=== PATIENT | female | born 1935 | race Caucasian/White ===

== ENCOUNTER → 2017-02-17 | Outpatient (CLI) | payer MEDICARE ==
--- NOTE | 2017-02-17 13:05 | PCVCIMAG ---
EXAM: BILATERAL LOWER EXTREMITY ARTERIAL DUPLEX INDICATION: Peripheral Arterial Disease. Leg pain. Right foot ulcer. FINDINGS: Right Leg: Satisfactory arterial waveforms in the common femoral and profunda femoral artery and throughout the superficial femoral artery and popliteal arteries without evidence of stenosis. The peroneal artery and posterior tibial arteries are patent. High-grade stenosis or occlusion in the mid/distal anterior tibial artery. Left Leg: Satisfactory arterial waveforms in the common femoral and profunda femoral artery and throughout the superficial femoral artery and popliteal arteries without evidence of stenosis. The peroneal artery and posterior tibial arteries are patent. High-grade stenosis or occlusion in the mid/distal anterior tibial artery. IMPRESSION: High-grade stenosis or occlusion of the mid/distal anterior tibial arteries bilaterally. Otherwise no flow-limiting stenosis seen in either lower extremity. LOC:[id number]
== END | disposition home or self-care (01) ==
LOC: PCVCIMAG 11:10
PROVIDERS: ATTEND Nuclear Medicine Nuclear Cardiology
DX: I73.9 Peripheral vascular disease, unspecified (principal); I77.1 Stricture of artery; L97.519 Non-pressure chronic ulcer of other part of right foot with unspecified severity
CPT/HCPCS: 93925

== ENCOUNTER → 2017-03-05 | Outpatient (CLI) | payer MEDICARE ==
[~2017-03-05] MED LIST: DIAZEPAM 10 MG TABLET. ONE; HEPARIN SODIUM 5,000 UNIT/ML VIAL for PCVC. ONE; IODIXANOL 270 MG/ML 100 ML VIAL. ONE; IV NORMAL SALINE 500ML BAG 0 ML ONE; IV NORMAL SALINE 500ML BAG 500 ML ONE; LIDOCAINE 1% Multi-Dose 20 ML VIAL. ONE; LIDOCAINE 1%/EPI 1:100,000 20 ML VIAL. ONE; MIDAZOLAM HCL/PF 2 MG/2 ML VIAL. ONE; fentaNYL PF VIAL 100 MCG/2 ML VIAL ONE; hydrALAZINE 20 MG/ML VIAL. ONE
--- NOTE | 2017-03-05 09:53 | PCVCINTER ---
EXAM: 1. AORTOGRAM AND BILATERAL LOWER EXTREMITY RUNOFF ANGIOGRAM 2. BILATERAL RENAL ANGIOGRAPHY INDICATION: Peripheral arterial disease. Nonhealing ulcer right lower extremity. Hypertension. Renal atherosclerosis. PROCEDURE: Procedure and risks of angiography intervention is appropriate including limb loss stroke and were discussed with the patient's family and consent obtained. The patient's left groin was prepped abnormal sterile fashion. IV conscious sedation was used to procedure with appropriate monitoring from 8:15 AM through 9:15 AM. Ultrasound was used to interrogate the left groin and showed the left common femoral artery to be patent. A permanent spot film was obtained. Under ultrasound guidance access into the left common femoral artery was obtained and a 5 Welsh sheath was placed. Through this a 5 Welsh flush catheter was placed into the abdominal aorta at the level of the renal arteries and AP aortogram was performed. Catheter was positioned at the aortic bifurcation and both oblique views of the pelvis were obtained. Catheter was positioned into the left external iliac artery and left leg runoff angiography was performed. Catheter was exchanged for a visceral catheter was placed into the right renal arteries and right renal angiograms obtained. Catheter was placed into the the left renal arteries and left renal angiograms were obtained. Catheter was advanced to the level of the right external iliac artery and right leg runoff angiography was obtained. Catheters and wires removed. Sheath was removed and hemostasis obtained using the FISH device. No immediate complications. FINDINGS: Aortogram: There is one right and 2 left renal arteries. Minimal plaque in the infrarenal abdominal aorta without significant stenosis. Pelvis: The right and left common and external iliac arteries show moderate tortuosity but are widely patent. Both internal iliac arteries are patent. The right and left common femoral and profunda femoral arteries are patent. Right renal artery: Minimal plaque proximal vessel. Mild changes of fibromuscular dysplasia in the mid vessel are not flow-limiting. Left renal artery: 2 left renal arteries of approximately equal size show minimal plaque in the proximal portion without significant stenosis. Right leg: The superficial femoral artery and popliteal artery are widely patent. The peroneal artery and posterior tibial arteries both show good patency throughout. The dominant runoff vessel is the posterior tibial artery which fills the plantar arteries. The anterior tibial artery becomes diminutive in size distally which is likely developmental and accordingly the dorsalis pedis is also diminutive in size. Left leg: The superficial femoral artery and popliteal artery are widely patent. The peroneal artery and posterior tibial arteries both show good patency throughout. The dominant runoff vessel is the posterior tibial artery which fills the plantar arteries. The anterior tibial artery becomes diminutive in size distally which is likely developmental and accordingly the dorsalis pedis is also diminutive in size. IMPRESSION: The right and left anterior tibial artery becomes diminutive in its mid and distal portion with the dorsalis pedis also being diminutive in size. No other flow-limiting stenoses in either lower extremity. There is satisfactory two-vessel runoff bilaterally with the plantar arteries being of adequate size to allow healing. follow up LOC:[id number]
== END | disposition home or self-care (01) ==
LOC: PCVCINTER 07:35
PROVIDERS: ATTEND Nuclear Medicine Nuclear Cardiology
DX: I70.213 Atherosclerosis of native arteries of extremities with intermittent claudication, bilateral legs (principal); I10 Essential (primary) hypertension; I70.1 Atherosclerosis of renal artery
CPT/HCPCS: 36246; 36252; 75716; 76937; 99152; 99153; C1751; C1760; C1769; C1894; J1644; J2250; J3010; J3490; J7040; Q9966; J0360; J0690